=== PATIENT | female | born 1950 | race Caucasian/White ===

== ENCOUNTER 2016-03-28 10:41 | Emergency (ER) | payer OTHER, MEDICARE ==
[2016-03-28 11:08] VITALS: BP 106/67; PULSE 84; RESP 18; TEMP 98.4; O2SAT 96
--- NOTE | 2016-03-28 11:47 | DX ---
PA and Lateral Chest History: Cough x6 weeks in a 65-year-old female; no previous chest films are available for comparison . Findings: The heart and mediastinal contours are normal. Pulmonary vascularity is normal. There is m ild central peribronchial thickening. Minimal hyperexpansion is suspected. There is slight elevation of the right hemidiaphragm. There are no alveolar opacities seen to suggest pneumonia. Impression: Findings consistent with airways disease are noted.
--- NOTE | 2016-03-28 12:16 | UCPHY ---
H & P Time Seen by Provider: 03/28/16 11:55 Patient Type: Established HPI/ROS: HPI Flu-like symptoms. 65-year-old female presents the emergency department with her complaining of a cough which she describes as mostly dry, body aches, fatigue, intermittent fever, nausea and diarrhea ongoing for 1 week. No ill contacts. ROS: Constitutional: As above, no chills. Eyes: No discharge. No changes in vision. ENT: No sore throat. No nasal congestion or rhinorrhea. Respiratory: As above. No shortness of breath. Cardiac: No chest pain, no palpitations. Gastrointestinal: No abdominal pain, no vomiting, no diarrhea. Genitourinary: No hematuria. No dysuria or increased frequency with urination. Musculoskeletal: As above. Skin: No rashes. Neurological: No headache. No focal weakness or altered sensation. Past medical history: No significant past medical history. Social history: Here with her . Physical Exam: General Appearance: Alert, no distress. This patient is responding to questions appropriately and in full sentences. This patient appears well- hydrated and well-nourished. Eyes: Pupils equal and round no pallor or injection. No lid edema, erythema or injection. ENT, Mouth: Mucous membranes are moist. The pharyngeal tissues are unremarkable. No edema or swelling. No asymmetry suggestive of abscess. No erythema or exudates. Respiratory: There are no retractions, lungs are clear to auscultation with good air movement bilaterally. Cardiovascular: Regular rate and rhythm. No murmur. Gastrointestinal: Abdomen is soft and nontender, no masses, bowel sounds normal. No focal tenderness at McBurney's point. No Nicholas sign. Neurological: Motor sensory function is grossly intact. Cranial nerves are normal. Gait is normal. Skin: Warm and dry, no rashes. Musculoskeletal: Neck is supple and nontender. Extremities are symmetrical. All joints range without pain or impingement. Psychiatric: No agitation. No depression. Database: Influenza-negative. EKG: Imaging: Chest x-ray PA and lateral; the cardiac mediastinal silhouette is unremarkable. No evidence of infiltrate or pneumothorax. Bronchitis noted. No other acute cardiopulmonary disease process noted. Interpreted by me. Procedures: Emergency department course: From triage, the patient was sent for a chest x-ray. Influenza swab done. After my evaluation at 12:15 p.m., I discussed results of her x-ray and influenza assays. I explained there was no indication for antibiotics at this time. I recommended supportive care with ibuprofen, Tylenol, rest and oral hydration. She and her feel comfortable with this plan. Follow-up and return to Urgent Care precautions discussed with the 2 of them. All of their questions were answered. She was discharged home in good condition with her . Differential Diagnosis: The differential diagnosis on this patient includes but is not limited to viral syndrome, influenza. Serious bacterial infection, pneumonia unlikely. This represents a partial list of diagnoses considered. These considerations are based on history, physical exam, past history, reassessment and diagnostic testing. Smoking Status: Never smoked Constitutional: Initial Vital Signs Temperature (C) 36.9 C 03/28/16 10:54 Heart Rate 84 03/28/16 10:54 Respiratory Rate 18 03/28/16 10:54 Blood Pressure 106/67 03/28/16 10:54 O2 Sat (%) 96 03/28/16 10:54 O2 Delivery Mode Room Air Allergies/Adverse Reactions: No Known Allergies Allergy (Unverified 03/31/09 09:45) Home Medications: Medication Instructions Recorded Crestor 03/28/16 Sertraline HCl 03/28/16 Medical Decision Making - Data Points Laboratory Results: 03/28/16 11:00 Influenza Typ A,B (DFA) NEGATIVE FOR FLU (NEGATIVE) Departure - Departure Disposition: Home, Routine, Self-Care Clinical Impression: Viral infection Condition: Good Instructions: Viral Syndrome (ED) Additional Instructions: Read and follow provided instructions. Follow-up with your primary care physician in 1-2 days for re-evaluation. Take medication as prescribed. Ibuprofen dosin mg every 6 hours with meals for the next 3 days only. Or Tylenol dosin mg every 6 hours as needed for fever, body aches for the next 2-3 days. Return to the emergency department for worsening cough, difficulty breathing, high fevers, vomiting or other serious concerns. Referrals: Zenia Sylvester MD [Primary Care Provider] - As per Instructions - PQRS PQRS Measurement: 134: Depression screening and followup, PRIME LU-PHQ2 (12 years and older) Over the last 2 weeks, how often have you been bothered by any of the following problems? 1. Feeling down, depressed, or hopeless? 2. Little interest or pleasure in doing things? Answered no to both questions. 130: Documentation of medications. Reviewed all patient medications, doses, route and frequency. 226: Do you smoke? No. 47: 65 and older: Advanced care planning. Patient designates surrogate decision maker as . 51: 18 years old and older with diagnosis of COPD, spirometry performance. NA 52: 18 years old and older with COPD and symptoms of COPD or FEV1<60% predicted prescribed a B Agonist. NA
== END 2016-03-28 12:18 | disposition home or self-care (01) ==
LOC: CED 10:41
DX: B34.9 Viral infection, unspecified (principal)
CPT/HCPCS: 71020; G0463; 87400-PO; 99214-PO

== ENCOUNTER → 2016-07-28 | Outpatient (CLI) | payer OTHER, MEDICARE | LOC: FIMAGING 08:51 | PROVIDERS: ATTEND Internal Medicine | DX: Z12.31 Encounter for screening mammogram for malignant neoplasm of breast (principal) | CPT/HCPCS: G0202 ==

== ENCOUNTER → 2017-07-29 | Outpatient (CLI) | payer OTHER, MEDICARE | LOC: FIMAGING 10:29 | PROVIDERS: ATTEND Internal Medicine | DX: Z12.31 Encounter for screening mammogram for malignant neoplasm of breast (principal) ==

== ENCOUNTER → 2017-09-22 | Outpatient (CLI) | payer OTHER, MEDICARE | LOC: BMCIMAGING 13:30 | PROVIDERS: ATTEND Internal Medicine Endocrinology, Diabetes & Metabolism | DX: E04.2 Nontoxic multinodular goiter (principal) | CPT/HCPCS: 76536-PO ==

== ENCOUNTER → 2018-08-30 | Outpatient (CLI) | payer OTHER, MEDICARE | LOC: FIMAGING 11:21 ==